=== PATIENT | male | born 1985 | race Caucasian/White ===

== ENCOUNTER 2018-05-25 15:08 | Emergency (ER) | payer OTHER, SELFPAY ==
[2018-05-25] MEDS ORDERED: LIDOCAINE 2% MDV 20 ML VIAL As Ordered (15:41)
[2018-05-25] MEDS: LIDOCAINE 2% MDV 20 ML VIAL SC (15:45)
== END 2018-05-25 16:12 | disposition home or self-care (01) ==
LOC: M ED 16:12
DX: S61.412A Laceration without foreign body of left hand, initial encounter (principal); W26.8XXA Contact with other sharp object(s), not elsewhere classified, initial encounter; Y92.9 Unspecified place or not applicable; Y93.89 Activity, other specified; Y99.0 Civilian activity done for income or pay
CPT/HCPCS: 12002